=== PATIENT | female | born 1965 | race Two or more races ===

== ENCOUNTER 2019-06-23 18:01 | Emergency (ER) | payer BC ==
[~2019-06-23] VITALS: Ht 152.4 cm; Wt 77.1 kg
[2019-06-23 18:29] LABS: BASOPHILS % (AUTO) 0.6 % (0.0-2.0); EOSINOPHILS % (AUTO) 0.5 % (0.0-7.0); HEMATOCRIT 39.5 % (31.2-41.9); HEMOGLOBIN 13.4 g/dL (10.9-14.3); LYMPHOCYTES # (AUTO) 1.8 K/uL (20.0-40.0); LYMPHOCYTES % (AUTO) 28.6 % (20.5-51.5); MEAN CORPUSCULAR HEMOGLOBIN 31.1 uug (24.7-32.8); MEAN CORPUSCULAR HGB CONC 34 g/dL (32.3-35.6); MONOCYTES # (AUTO) 0.9 K/uL (2.0-10.0); MONOCYTES % (AUTO) 14.5 % (0.0-11.0); NEUTROPHILS # (AUTO) 3.6 K/uL (1.8-8.9); NEUTROPHILS % (AUTO) 55.8 % (38.5-71.5); PLATELET COUNT (AUTO) 251 K/uL (179-408); WHITE BLOOD COUNT (AUTO) 6.4 K/uL (3.8-11.8)
--- NOTE | 2019-06-23 18:33 | NUR ---
ERMD AT BEDSIDE FOR HX AND PHYSICAL
[2019-06-23 18:37] LABS: CREATININE 0.8 mg/dL (0.6-1.3); POTASSIUM 4.1 mmol/L (3.5-5.1)
[2019-06-23] MEDS ORDERED: ASPIRIN 325 MG TABLET PO ONE (19:00)
[2019-06-23] MEDS ORDERED: ASPIRIN 325 MG TABLET ONE (19:02)
--- NOTE | 2019-06-23 19:04 | NUR ---
HAND OFF AND SBAR GIVEN TO INCOMING [employer]BILE [employer]PH[employer] APPRENTICE RN DEXTER)
[2019-06-23] MEDS ORDERED: KETOROLAC TROMETHAMINE 60 MG INJ IM ONE ×2 (22:30→22:42)
[2019-06-23 23:27] VITALS: BP 138/90
--- NOTE | 2019-06-23 23:33 | NUR ---
Patient discharged to home in stable conditon. Written and verbal after care instructions given. Patient verbalizes understanding of instructions. Walked out of ER with no distress noted.
== END 2019-06-23 23:34 | disposition home or self-care (01) ==
LOC: ER 18:03
DX: R07.89 Other chest pain (principal); M54.6 Pain in thoracic spine; R06.02 Shortness of breath
CPT/HCPCS: 36415; 71045; 80048; 84484 ×2; 85025; 85379; 93005 ×2; 96372; 99285; J1885; 70030-TC; A4663